=== PATIENT | male | born 1990 | race Caucasian/White ===

== ENCOUNTER 2020-02-21 16:02 | Outpatient (CLI) | payer OTHER, SELFPAY ==
[2020-02-21 16:17] LABS: Basophils Percent Auto 0.3 % (0.2-1.2); Eosinophils Absolute Auto 0.1 K/mm3 (0-0.3); Eosinophils Percent Auto 1.2 % (0-4.4); Hematocrit 43.5 % (42.0-52.0); Hemoglobin 14.4 g/dL (14.0-18.0); Immature Granulocyte Absolute 0.02 K/mm3 (0.00-0.031); Immature Granulocyte Percent A 0.3 % (0-0.5); Lymphocytes Absolute Auto 1.94 K/mm3 (0.9-3.2); Lymphocytes Percent Auto 25.9 % (18.3-44.2); Mean Corpuscular HGB Conc 33.1 g/dl (32-36); Mean Corpuscular Volume 99.5 fl (80-100); Mean Platelet Volume 9.5 fl (7.4-10.4); Monocytes Absolute Auto 0.5 K/mm3 (0.1-0.6); Neutrophils Percent Auto 66.3 % (45.5-73.1); Platelet Count Result 277 k/mm3 (150-375); Red Blood Count 4.37 M/mm3 (4.6-6.20); Red Cell Distribution Width 12.4 % (11.5-14.5); White Blood Count 7.5 K/mm3 (4.5-10.0)
[2020-02-21 17:02] LABS: Alanine Aminotransferase 27 U/L (4-50); Albumin Level 4.3 g/dL (3.5-5.1); Alkaline Phosphatase 75 U/L (38-126); Aspartate Amino Transferase 24 U/L (17-59); Bilirubin,Total 0.2 mg/dL (0.2-1.3); Blood Urea Nitrogen 11 mg/dL (9-20); CRP 0.6 mg/dL (<1.0); Calcium 9.4 mg/dL (8.4-10.2); Carbon Dioxide 25 mmol/L (22-30); Chloride 105 mmol/L (98-107); Estimated Glomerular Filt Rate > 60; Glucose 94 mg/dL (75-110); Potassium 4.7 mmol/L (3.4-5.0); Sodium 141 mmol/L (137-145)
[2020-02-21 17:08] LABS: Immunoglobulin A 432 mg/dL (70-400); Immunoglobulin G 1195 mg/dL (700-1600); Immunoglobulin M 58 mg/dL (40-230)
[2020-02-21 17:11] LABS: Erythrocyte Sedimentation Rate 14 mm/hr (0-20)
[2020-02-23 22:41] LABS: Albumin 4.1 g/dL (3.8-4.8); Alpha 1 Globulin 0.3 g/dL (0.2-0.3); Alpha 2 Globulin 0.9 g/dL (0.5-0.9); Beta 1 Globulin 0.5 g/dL (0.4-0.6); Gamma Globulin 1.1 g/dL (0.8-1.7); Protein, Total 7.3 g/dL (6.1-8.1)
[2020-02-24 17:20] LABS: Kappa\\Lambda Light Chains 1.54 (0.26-1.65); Lambda Light Chain 12.3 mg/L (5.7-26.3)
== END 2020-02-21 16:03 | disposition home or self-care (01) ==
LOC: ANHLAB 16:07
PROVIDERS: PCP Internal Medicine; Visit Provider Internal Medicine Hematology & Oncology
DX: R76.8 Other specified abnormal immunological findings in serum (principal)
CPT/HCPCS: 36415; 80053; 82784; 83883; 84155; 84165; 85025; 85652; 86140; 86334

== ENCOUNTER → 2022-01-15 11:44 | Outpatient (CLI) | payer OTHER, SELFPAY ==
--- NOTE | ~2022-01-15 | US_ITS ---
EXAMINATION: US right upper quadrant EXAM DATE: 01/15/2022 12:10 INDICATION: Abdomen Pain TECHNIQUE: Multiple grayscale and Doppler images of the abdomen right upper quadrant were obtained (b y a technologist who performed the scan) and subsequently reviewed. There is no prior study for elsy valentin. FINDINGS: The pancreatic head and body are normal in appearance. The pancreatic tail is not visualized. The l iver has normal echogenicity and contour. There are no focal liver lesions identified. There is no evidence of intrahepatic biliary duct dilation. Portal venous flow was seen in the hepatopedal, nor mal direction and has normal Doppler waveform. No right-sided hydronephrosis. Common bile duct measures 4 mm, which is normal. The gallbladder wall is normal in thickness, with ex pected amount of distention. No sonographic evidence of pericholecystic fluid. There is no cholelit hiases. Technologist performing exam reports patient did not demonstrate sonographic Kahn's sign. Please note that this sign is less reliable in patients who have received pain medication. IMPRESSION: 1. Unremarkable abdominal ultrasound exam. Reviewed, dictated and finalized at location A. LACE MACHINE OPERATOR
== END ==
PROVIDERS: Visit Provider Physician Assistant Medical
DX: R10.11 Right upper quadrant pain (principal)
CPT/HCPCS: 76705

== ENCOUNTER 2023-12-23 14:33 | Outpatient (CLI) | payer OTHER, BC, SELFPAY ==
[2023-12-23 14:48] LABS: Basophils Percent Auto 0.5 % (0.2-1.2); Eosinophils Absolute Auto 0.1 K/mm3 (0-0.3); Eosinophils Percent Auto 1.2 % (0-4.4); Hematocrit 40.1 % (42.0-52.0); Hemoglobin 13.4 g/dL (14.0-18.0); Immature Granulocyte Absolute 0.01 K/mm3 (0.00-0.031); Immature Granulocyte Percent A 0.2 % (0-0.5); Lymphocytes Absolute Auto 2.27 K/mm3 (0.9-3.2); Lymphocytes Percent Auto 39.3 % (18.3-44.2); Mean Corpuscular HGB Conc 33.4 g/dl (32-36); Mean Corpuscular Hemoglobin 33.3 pg (26-34); Mean Corpuscular Volume 99.5 fl (80-100); Mean Platelet Volume 9.4 fl (7.4-10.4); Monocytes Absolute Auto 0.6 K/mm3 (0.1-0.6); Monocytes Percent Auto 9.9 % (2.6-8.5); Neutrophils Absolute Auto 2.8 K/mm3 (1.3-6.7); Neutrophils Percent Auto 48.9 % (45.5-73.1); Platelet Count Result 253 k/mm3 (150-375); Red Blood Count 4.03 M/mm3 (4.6-6.20); Red Cell Distribution Width 11.9 % (11.5-14.5); White Blood Count 5.8 K/mm3 (4.5-10.0)
== END 2023-12-23 14:34 | disposition home or self-care (01) ==
LOC: ANHLAB 14:36
PROVIDERS: Visit Provider Internal Medicine Hematology & Oncology
DX: R76.8 Other specified abnormal immunological findings in serum (principal)
CPT/HCPCS: 36415; 85025

== ENCOUNTER 2025-02-14 09:59 | Outpatient (CLI) | payer BC, SELFPAY ==
[2025-02-14 10:17] LABS: Basophils Percent Auto 0.5 % (0.2-1.2); Eosinophils Absolute Auto 0.2 K/mm3 (0-0.3); Eosinophils Percent Auto 2.4 % (0-4.4); Hematocrit 40.4 % (42.0-52.0); Hemoglobin 13.6 g/dL (14.0-18.0); Immature Granulocyte Absolute 0.02 K/mm3 (0.00-0.031); Immature Granulocyte Percent A 0.3 % (0-0.5); Lymphocytes Absolute Auto 2.09 K/mm3 (0.9-3.2); Lymphocytes Percent Auto 31.4 % (18.3-44.2); Mean Corpuscular HGB Conc 33.7 g/dl (32-36); Mean Corpuscular Hemoglobin 33.3 pg (26-34); Mean Platelet Volume 9.4 fl (7.4-10.4); Monocytes Absolute Auto 0.6 K/mm3 (0.1-0.6); Neutrophils Absolute Auto 3.8 K/mm3 (1.3-6.7); Neutrophils Percent Auto 56.4 % (45.5-73.1); Platelet Count Result 278 k/mm3 (150-375); Red Blood Count 4.08 M/mm3 (4.6-6.20); Red Cell Distribution Width 11.9 % (11.5-14.5); White Blood Count 6.7 K/mm3 (4.5-10.0)
--- OUTSIDE RECORDS SUMMARY | 2025-02-14 11:19 | XMS_ITS | Encounter Summary ---
Author Organization [facility] Address [address] [place] [address] Care Team Providers Care Breaker Operator Name Role Phone Jonathon Valentine MD Primary Care Provider [phone] Encounter Details Date Type Department Care Team (Late st Contact Info) Description 12/24/2021 Prep for Procedure [facility] [address] [place] [address] Marky Bai MD [address] [facility] [address] [place] [address] Social History Tobacco Use Types Packs/Day Years Used Date Smoking Tobacco: Never Smokeless Tobacco: Current Chew Alcohol Use Standard Drinks/Week Comments Yes 33.3 (1 standard drink = 0.6 oz pure alcohol) Sex and Gender Information Value Date Recorded Sex Assigned at Not on file Legal Sex Male 11:10 PM CDT Gender Identity Not on file Sexual Orientation Not on file COVID-19 Exposure Response Date Recorded In the last month, have you been in contact with someone who was confirmed or suspected to have Coronavirus / COVID-19? No / Unsure 12/24/2021 9:07 AM BONDING MOLDER documented as of this encounter Functional Status * RETIRED Are you deaf or do you have serious difficulty hearing Answer Date of Assessment Author Status No 03/20/2020 9:34 PM CDT Activ e * RETIRED Are you blind or do you have serious difficulty seeing, even when wearing glasses? Answer Date of Assessment Author Status No 03/20/2020 9:34 PM CDT Activ e * Do you have serious difficulty walking or climbing stairs? Answer Date of Assessment Author Status No 03/20/2020 9:34 PM CDT Lu Coffey, DUENAS Active * Do you have difficulty dressing or bathing? Answer Date of Assessment Author Status No 03/20/2020 9:34 PM CDT Lu Coffey, DUENAS Active * Because of a physical, mental, or emotional condition, do you have difficulty doing errands alone such as visiting a doctor's office or shopping? Answer Date of Assessment Author Status No 03/20/2020 9:34 PM CDT Lu Coffey DUENAS Active documented as of this encounter Mental Status * Because of a physical, mental, or emotional condition, do you have serious difficulty concentrating, remembering, or making decisions? Answer Entry Date Author Status No 03/20/2020 9:34 PM CDT Lu Coffey, DUENAS Active documented in this encounter Plan of Treatment Not on file documented as of this encounter Results * Coronavirus (COVID-19) Antigen Rapid Pre-Surgical (12/24/2021 9:36 AM BONDING MOLDER) [facility] CORONAVIRUS ANTIGEN IA NEGATIVE NEGATIVE 12/24/2021 9:57 AM [facility] Comment: NEGATIVE RESULTS DO NOT RULE OUT SARS-COV-2 INFECTION AND SHOULD NOT BE USED THE SOLE BASIS FOR TREATMENT OR PATIENT MANAGEMENT DECISIONS, INCLUDING INFECTION CONTROL DECISIONS. NEGATIVE RESULTS SHOULD BE CONSIDERED IN THE CONTEXT OF A PATIENT'S RECENT EXPOSURES, HISTORY AND THE PRESENCE OF CLINICAL SIGNS AND SYMPTOMS CONSISTENT WITH COVID 19. THIS TEST HAS BEEN AUTHORIZED BY THE FDA UNDER AN EMERGENCY USE AUTHORIZATION (EUA) FOR USE BY AUTHORIZED LABORATORIES. SPECIMEN TYPE NASAL 12/24/2021 9:26 AM [facility] FIRST TEST NO 12/24/2021 9:26 AM [facility] EMPLOYED IN HEALTHCARE NO 12/24/2021 9:26 AM [facility] SYMPTOMATIC DEFINED BY CDC NO 12/24/2021 9:26 AM BONDING MOLDER [facility] HOSPITALIZATION STATUS NO 12/24/2021 9:26 AM BONDING MOLDER [facility] PATIENT IN ICU NO 12/24/2021 9:26 AM BONDING MOLDER [facility] RESIDENT OF [facility] NO 12/24/2021 9:26 AM BONDING MOLDER [facility] Specimen from nose (specimen) NASAL STRUCTURE / Unknown 12/24/2021 9:36 AM BONDING MOLDER us Marky Bai MD MICROBIOLOGY - GENERAL DEL STEVENS Final Result Performing Organization Address City/State/[facility] Co de Phone Number [facility] [address] [place] [address], documented in this encounter Visit Diagnoses Diagnosis Pre-op testing- Primary Preoperative examination, unspecified documented in this encounter Additional Health Concerns Infection Onset Date Last Indicated Resolved Time COVID-19 Rule Out 12/24/2021 12/24/2021 12/24/2021 9:57 AM BONDING MOLDER documented as of this encounter Care Teams Breaker Operator Relationship Specialty Start Date End Date Jonathon Valentine MD [address] [place] [id number] PCP - General INTERNAL MEDICINE 01/05/20 documented as of this encounter
--- OUTSIDE RECORDS SUMMARY | 2025-02-14 11:19 | XMS_ITS | Clinical Summary ---
Author Organization [facility] Address [address] [place] [address] Care Team Providers Care Management Nurse Rn Name Role Phone Jonathon Valentine MD Primary Care Provider [phone] Allergies No known active allergies Medications aspirin (SHARAN) 325 mg tablet Take 325 mg by mouth. 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 Encounters Date Type Department Care Team Description 01/26/2025 Abstract [facility] Oncology and Hematology [address] [place] [address] Stephen Pal MD 12/22/2024 Orders Only [facility]ology [address] [place] [address] Stephen Pal MD Elevated immunoglobulin A (Primary Dx) 12/15/2024 External Device Data [facility] ABSTRACTION Provider, Abstract 12/14/2024 External Device Data [facility] ABSTRACTION Provider, Abstract 12/07/2024 External Device Data [facility] ABSTRACTION Provider, Abstract from Last 3 Months Family History Relation Name Status Comments Brother Alive Daughter Alive Father Alive Mother Alive Sister Alive Social History Tobacco Use Types Packs/Day Years Used Date Smoking Tobacco: Never Smokeless Tobacco: Current Chew Tobacco Cessation:Ready to Q uit: Not Asked; Counseling Given: Not Answered Alcohol Use Standard Drinks/Week Comments Yes 0 (1 standard drink = 0.6 oz pur e alcohol) Sex and Gender Information Value Date Recorded Sex Assigned at Not on file Legal Sex Male 1:10 PM COATING MANAGER Gender Identity Not on file Sexual Orientation Not on file Last Filed Vital Signs Vital Sign Reading Time Taken Comments Blood Pressure 195/101 12/23/2023 2:51 PM COATING MANAGER Pulse 82 12/23/2023 2:49 PM COATING MANAGER Temperature 36.2 C (97.1 F) 12/23/2023 2:49 PM COATING MANAGER Respiratory Rate 12 12/23/2023 2:49 PM COATING MANAGER Oxygen Saturation 97% 12/23/2023 2:49 PM COATING MANAGER Inhaled Oxygen Concentration - - Weight 172.8 kg (381 lb) 12/23/2023 2:49 PM COATING MANAGER Height 172.7 cm (5' 8 ) 10/26/2021 9:40 AM COATING MANAGER Body Mass Index 57.93 10/26/2021 9:40 AM COATING MANAGER Plan of Treatment Upcoming Encounters Date Type Department Care Team (Late st Contact Info) Description 02/25/2025 10:45 AM CDT Office Visit [facility] Oncology and Hematology - [address] [facility] [address] [place] [address] Stephen Pal MD [address] [facility] [address] [place] [address] Health Maintenance Due Date Last Done Comments DTAP/TDAP/TD VACCINES (1 - Tdap) 2007 06/01/1993, 02/27/1990, 03/21/1989, Additional history exists HEPATITIS B VACCINES (1 of 3 - 19+ 3-dose series) 2007 INFLUENZA VACCINE (#1) 2024 HPV VACCINES Aged Out No longer eligi ble based on patient's age to complete this topic Insurance [facility]ERR[facility] Care Teams Management Nurse Rn Relationship Specialty Start Date End Date Jonathon Valentine MD [address] [place] [id number] PCP - General Internal Medicine 01/19/20
--- OUTSIDE RECORDS SUMMARY | 2025-02-14 11:19 | XMS_ITS | Clinical Summary ---
Author Organization [facility] Address [address] [place] [address] Care Team Providers Care Gas Meter Repair Supervisor Name Role Phone Jonathon Valentine MD Primary Care Provider [phone] Allergies No known active allergies Medications aspirin 325 MG tablet Take 1 tablet (325 mg total) by mouth as needed. Active pantoprazole EC 40 MG tablet Take 40 mg by mouth daily. 11/09/2021 Active naproxen (NAPROSYN) 500 MG tabletIndication s:Acute midline low back pain without sciatica,Right hip pain Take 1 tablet (500 mg total) by mouth 2 (two) times daily with meals. 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 Illness 12/30/2016 Immunizations Name Administration Dates Next Due Dtap (Generic) 06/01/1993,02/27/1990,03/21/1989 ,1988,1988 MMR (Generic) 06/01/1993,01/23/1990 Opv 06/01/1993,02/27/1990,03/21/1989 ,1988,1988 Social History Tobacco Use Types Packs/Day Years Used Date Smoking Tobacco: Never Passive Smoke Exposure: Never Smokeless Tobacco: Current Chew Alcohol Use Standard Drinks/Week Comments Yes 33.3 (1 standard drink = 0.6 oz pure alcohol) PHQ-2 Answer Date Recorded Patient Health Questionnaire-2 Score 0 04/22/2023 Sex and Gender Information Value Date Recorded Sex Assigned at Not on file Legal Sex Male 11:10 PM CDT Gender Identity Not on file Sexual Orientation Not on file Last Filed Vital Signs Vital Sign Reading Time Taken Comments Blood Pressure 120/68 04/22/2023 10:21 AM CDT Pulse 88 04/22/2023 10:21 AM CDT Temperature 36.4 C (97.6 F) 04/22/2023 10:21 AM CDT Respiratory Rate 18 04/22/2023 10:21 AM CDT Oxygen Saturation 99% 04/22/2023 10:21 AM CDT Inhaled Oxygen Concentration - - Weight 168.7 kg (372 lb) 04/22/2023 10:21 AM CDT Height 172.7 cm (5' 8 ) 04/22/2023 10:21 AM CDT Body Mass Index 56.56 04/22/2023 10:21 AM CDT Plan of Treatment Health Maintenance Due Date Last Done Comments Annual Physical 1991 DTaP, Tdap and Td Vaccines (6 - Tdap) 08/24/2002 08/23/2002, 06/01/1993, 02/27/1990, Additional history exists Hepatitis C 2006 Hepatitis B Vaccines (1 of 3 - 19+ 3-dose series) 2007 COVID-19 Vaccine ( season) 2024 Influenza Adult (#1) 2024 PHQ-2 (Physician Clifford) 11/24/2024 04/22/2023 HPV Vaccines Aged Out No longer eligi ble based on patient's age to complete this topic Meningococcal B Vaccine Aged Out No l onger eligible based on patient's age to complete this topic Meningococcal Vaccine Aged Out No elfego manav eligible based on patient's age to complete this topic Pneumococcal Vaccine: Pediatrics (0 to 5 Years) and At-Risk Patients (6 to 64 Years) Aged Out No longer eligible based on patient's age to complete this topic RSV Immunizations Under 20 Months Aged Out No longer eligible based on patient's age to complete this topic Insurance GENERIC - COMMERCIAL [place] [id number] Advance Directives * Full Code (Latest Code Status on File) Date Activated Date Inactivated Comments 03/20/2020 8:14 PM 03/21/2020 6:15 PM Care Teams Gas Meter Repair Supervisor Relationship Specialty Start Date End Date Jonathon Valentine MD [address] [place] [id number] PCP - General INTERNAL MEDICINE 01/05/20
--- OUTSIDE RECORDS SUMMARY | 2025-02-14 11:19 | XMS_ITS | Patient Health Record ---
Author Organization [facility] Address [address] [place] [address] Care Team Providers Care Salesperson Yard Goods Name Role Phone Meme MAYORGA, Jonathon Primary Care Provider Unavailab lora WEEMS NP, GABRIEL Unavailable Clemente BURT, Olamide Unavailable Unavailable ALLERGIES No Known Allergies REASON FOR REFERRAL No Information MEDICATIONS Medication SIG (Take, Route, Frequency, Duration) Notes Start Date End Date Status Hyoscyamine Sulfate 0.125 MG PLEASE SEE ATTACHED FOR DETAILED DIRECTIONS for 30 Active Omeprazole 40 MG 1 capsule 30 minutes before morning meal Orally q12h Active SOCIAL HISTORY Sex Assigned At : Social History Observation Description Sex Assigned At Unknown Tobacco use other than smoking: Question Answer Notes Are you an other tobacco user? Yes PLAN OF TREATMENT No Information Insurance Providers Payer Name Payer Address Payer Phone Subscriber Number Group Number Insured Name Patient Relationship to Insured Coverage Start Date Coverage End Date [employer] Medicare Supplement [address] [address] [place], [place] [id number] Omero Batista Self - patient is the insured MEDICAL (GENERAL) HISTORY Surgical History Surgery Date(Month/Year) EGD aliperti - normal 2021
[2025-02-14 11:47] LABS: Alanine Aminotransferase 24 U/L (6-50); Albumin Level 4.4 g/dL (3.5-5.1); Alkaline Phosphatase 68 U/L (38-126); Anion Gap 10 mmol/L (4-12); Aspartate Amino Transferase 26 U/L (17-59); Bilirubin,Total 0.7 mg/dL (0.2-1.3); Blood Urea Nitrogen 15 mg/dL (9-20); Calcium 9.3 mg/dL (8.4-10.2); Carbon Dioxide 28 mmol/L (22-30); Chloride 103 mmol/L (98-107); Estimated Glomerular Filt Rate > 60; Glucose 95 mg/dL (65-110); Potassium 4.9 mmol/L (3.4-5.0); Sodium 141 mmol/L (137-145)
[2025-02-14 12:02] LABS: Immunoglobulin A 465 mg/dL (70-400); Immunoglobulin G 1190 mg/dL (700-1600); Immunoglobulin M 47 mg/dL (40-230)
[2025-02-15 05:19] LABS: Protein, Total 7.3 g/dL (6.1-8.1)
[2025-02-15 19:53] LABS: Albumin 4.1 g/dL (3.8-4.8); Alpha 1 Globulin 0.3 g/dL (0.2-0.3); Alpha 2 Globulin 0.9 g/dL (0.5-0.9); Beta 1 Globulin 0.4 g/dL (0.4-0.6)
[2025-02-16 13:24] LABS: Kappa\\Lambda Light Chains 1.46 (0.26-1.65); Lambda Light Chain 15.8 mg/L (5.7-26.3)
== END 2025-02-14 10:00 | disposition home or self-care (01) ==
PROVIDERS: PCP Nurse Practitioner Family; Visit Provider Internal Medicine Hematology & Oncology
DX: R76.8 Other specified abnormal immunological findings in serum (principal)
CPT/HCPCS: 36415; 80053; 82784; 83883; 84155; 84165; 85025

== ENCOUNTER 2025-05-13 09:40 | Outpatient (CLI) | payer BC, SELFPAY ==
--- NOTE | ~2025-05-13 | XR_ITS ---
EXAMINATION: XR lg joint inject/asp w image DATE: 05/13/2025 10:57 INDICATION: Primary osteoarthritis of the right hip TECHNIQUE: A time-out was performed to verify the patient's name, date of , and procedure to b e performed. The procedure including the risks, benefits, and alternatives was discussed with the pat ient. Risks discussed included bleeding and infection. The patient understood the risks and agreed to proceed. The skin overlying the right hip joint was prepped and draped in usual sterile fashion. A nesthetic was administered with 1% lidocaine subcutaneously. A 22 G needle was advanced under fluoro scopic guidance into the joint. Injection of 1 mL of Omnipaque 240 confirmed intra-articular positio n of the needle. Subsequently, injectate consisting of 3 mL of a 2:1 mixture of 0.5% Marcaine: 80 mg /mL Depo-Medrol was instilled. Washout of contrast was seen confirming intra-articular administration . The needle was removed and the entry site was cleaned and dressed. There were no immediate complic ations. Fluoroscopy exposure time was 0.4 minutes. The total number of images was 3. FINDINGS: Real-time fluoroscopy demonstrates the needle and injected contrast in the right hip joint. Patient's pain prior to procedure:7/10. Patient's pain following the procedure: 3/10. Advanced righ t hip osteoarthritis. IMPRESSION: 1. Successful right hip joint injection of local anesthetic and steroid with decrease in the patient' s presenting pain. Reviewed, dictated and finalized at location A. IMPRESSION: 1. Successful right hip joint injection of local anesthetic and steroid with de crease in the patient's presenting pain.
== END 2025-05-13 09:41 | disposition home or self-care (01) ==
PROVIDERS: PCP Nurse Practitioner Family; Visit Provider Orthopaedic Surgery
DX: M16.11 Unilateral primary osteoarthritis, right hip (principal)
CPT/HCPCS: 20610; 77002; J1010; Q9966